=== PATIENT | female | born 1970 | race Caucasian/White ===

== ENCOUNTER 2021-10-13 15:21 | Emergency (ER) | payer OTHER ==
[~2021-10-13] VITALS: Ht 162.6 cm; Wt 88.9 kg
[~2021-10-13 15:21] MED LIST: ARMOUR THYROID60 M1 PO; LORTABELXR PO; MEDROL DOSPAK21 TA1 PO; PREDNISONE50 MG PO; PROAIR HFA8.5 GM IH; SYMBICORT160 MCG/4. INH; SYNTHROID
[2021-10-13] MEDS ORDERED: NP THYROID 120120 MG PO (15:36)
[2021-10-13] MEDS ORDERED: VITAMIN D325 MC3 PO (15:37)
[2021-10-13] MEDS ORDERED: ZYRTEC10 M4 PO (15:37)
[2021-10-13 16:07] LABS: HEMATOCRIT 41.1 % (37.0-47.0); HEMOGLOBIN 13.3 gm/dL (12.0-15.0); MCH 28.3 pg (26.0-34.0); MCHC 32.4 g/dL (28.0-37.0); MCV 87.3 fL (80.0-100.0); MPV 10.2 fl. (7.2-11.1); NUCLEATED RBCS 0 /100WBC; PLATELET COUNT* 204 thou/uL (150-400); RBC 4.71 mil/uL (4.20-5.00); RDW-CV 14.3 % (10.5-14.5)
[2021-10-13 16:14] LABS: CALCIUM 8.5 mg/dL (8.5-10.1); CREATININE 0.9 mg/dL (0.6-1.3)
[2021-10-13 16:19] LABS: ALBUMIN 3.7 g/dL (3.4-5.0); TOTAL BILIRUBIN 0.8 mg/dL (<0.1-1.0)
--- NOTE | 2021-10-13 16:21 | EKG ---
[place] [address] ELECTROCARDIOGRAM REPORT Name: MADELINE MEJIA Room: [facility]#: [id number] Admission: 10/13/21 Attend Phys: Discharge: Date of : 72 Date of Service: 10/13/21 1601 Report #: [id number] THIS REPORT FOR: //name// [facility] ED Test Date: 2021-10-13 Test Time: 16:01:45 Pat Name: MADELINE MEJIA Department: Room: Gender: F Litigation Paralegal: CARLOS : 1970 Requested By: Sumanth Pastor Order Number: [id number] MD: Ralph Obando Measurements Intervals [place] Rate: 103 P: 18 AK: 119 QRS: 0 QRSD: 89 T: 89 QT: 319 QTc: 418 Interpretive Statements Sinus tachycardia Consider anterior infarct Borderline repolarization abnormality Compared to ECG 04/18/2016 14:48:53 Sinus rhythm no longer present Electronically Signed On 10-13-2021 16:21:14 [employer]IL DIST[employer] by Ralph Obando [email or web address] <ELECTRONICALLY SIGNED> By: Ralph Obando MD, [facility] 10/13/21 1621 160 160 Ralph Obando MD, [facility] /EPI
[2021-10-13 16:27] LABS: INFLUENZA A ANTIGEN Negative (Negative); INFLUENZA B ANTIGEN Negative (Negative)
[2021-10-13 16:42] LABS: ABSOLUTE LYMPHOCYTES 0.4 thou/uL (0.8-5.3); ABSOLUTE MONOCYTES 0.1 thou/uL (0.0-1.2); ABSOLUTE NEUTROPHILS 3.4 thou/uL (1.6-8.1); PLATELET ESTIMATE ADEQUATE
[2021-10-13] MEDS ORDERED: AUGMENTIN 875-1 EACH PO (18:23)
[2021-10-13] MEDS ORDERED: PREDNISONE50 MG PO (18:23)
[2021-10-13 18:53] VITALS: BP 125/60
== END 2021-10-13 18:54 | disposition home or self-care (01) ==
LOC: M.ERS 15:21
PROVIDERS: Emergency Medicine Emergency Medical Services
DX: J18.9 Pneumonia, unspecified organism (principal); Z20.822 Contact with and (suspected) exposure to COVID-19; R42 Dizziness and giddiness; R51.9 Headache, unspecified; E03.9 Hypothyroidism, unspecified; J45.909 Unspecified asthma, uncomplicated; Z98.84 Bariatric surgery status; Z90.49 Acquired absence of other specified parts of digestive tract; Z98.890 Other specified postprocedural states; Z79.899 Other long term (current) drug therapy; Z88.8 Allergy status to other drugs, medicaments and biological substances